=== PATIENT | female | born 1990 | race Hispanic/Latino ===

== ENCOUNTER 2019-04-10 23:42 | Emergency (ER) | payer OTHER ==
[~2019-04-10] VITALS: Ht 157.5 cm; Wt 91.2 kg
[2019-04-11] MEDS ORDERED: FAMOTIDINE 20 MG TAB PO ONE (00:15)
[2019-04-11] MEDS ORDERED: DIPHENHYDRAMINE HCL 25 MG CAP PO ONE (00:15)
[2019-04-11] MEDS ORDERED: METHYLPREDNISOLONE SOD SUCC 125 MG/2ML VIAL ONE (01:11)
[2019-04-11] MEDS ORDERED: METHYLPREDNISOLONE SOD SUCC 125 MG/2ML VIAL IM ONE (01:15)
== END 2019-04-11 02:26 | disposition home or self-care (01) ==
LOC: ER 23:42
DX: L50.9 Urticaria, unspecified (principal)
CPT/HCPCS: 99282; J2930